=== PATIENT | female | born 1965 | race Caucasian/White ===

== ENCOUNTER 2017-07-17 16:52 | Emergency (ER) | payer MEDICARE, OTHER ==
[~2017-07-17] VITALS: Ht 167.6 cm; Wt 148.1 kg
[~2017-07-17 16:52] MED LIST: AMOCLA875 PO; AMOX500 PO; ARIP10 PO; ARIP20 PO; BENZ.5 PO; BENZ1; BIRTH CONTROL; BUPR150ER; BUPR150T2 PO; CEFU500 PO; CHOL10002 PO; CITA20; CLON.5 PO; CLOZ100 PO; DIVA250EC; DIVA500EC; DOC250; DOCU100 PO; HYDACE25S PR; HYDACE5 PO; IBUP600; IBUP800 PO; LORA1; Lithium Carbon300 M1 PO; MULVITA; MULVITMINE PO; NAPR500 PO; OMEP20ER PO; OMEP40CA12 PO; PERP4; PROM25 PO; QUET100; QUET25; RANI150; RANI150 PO; RXONDA4ODT MM; RXPROM25 PO; RXPROM25S PR; SEROQUEL 50 MG; SULTRISS PO
== END 2017-07-17 18:10 | disposition home or self-care (01) ==
LOC: ER 16:52
DX: S80.812A Abrasion, left lower leg, initial encounter (principal); S80.811A Abrasion, right lower leg, initial encounter; Z88.8 Allergy status to other drugs, medicaments and biological substances; Z79.899 Other long term (current) drug therapy; F31.9 Bipolar disorder, unspecified; E11.9 Type 2 diabetes mellitus without complications; W19.XXXA Unspecified fall, initial encounter
CPT/HCPCS: 99281